=== PATIENT | female | born 2000 | race Caucasian/White ===

== ENCOUNTER 2022-02-12 09:06 | Day surgery (SDC) | payer BC, SELFPAY ==
[2022-02-12] VITALS (14 sets, daily range): BP systolic 107–131; BP diastolic 61–90; PULSE 50–98; RESP 12–18; TEMP 36.4–37.1; O2SAT 95–100; BMI 28.8
[2022-02-12] MEDS: LACTATED RINGERS 1000 ML 1,000 ML 100 ML IV (09:00)
--- NOTE | 2022-02-12 10:09 | W.ANESCHARGE ---
Anesthesia Charges Start Date/Time Anesthesia Start Date: 02/12/22 Anesthesia Start Time: 10:23 Stop Date/Time Anesthesia Stop Date: 02/12/22 Anesthesia Stop Time: 11:05 Summary Emergency: No
[2022-02-12] MEDS: fentaNYL 100 MCG/2 ML inj 50 MCG IVP (11:17)
--- NOTE | 2022-02-12 12:01 | W.PM.ENTPROC ---
Procedure Note Date of procedure: 02/12/22 Procedure: Preoperative diagnosis adenotonsillar hypertrophy, chronic tonsillitis Postoperative diagnosis same Procedure adenotonsillectomy Under general trach anesthesia patient was prepped and draped usual fashion. The McIvor mouth gag was inserted the tongue retracted forward. No submucous cleft was noted on inspection or palpation. The right and left tonsil were removed with a combination of needlepoint and Coblation. The nasopharynx was visualized indirectly with a laryngeal mirror and the adenoid pad was moderately enlarged. It was removed with suction cautery. The patient tolerated the procedure well and was taken recovery in satisfactory condition. Blood loss less than 20 mL complications none Surgeon: Leland Sheikh MD
--- NOTE | 2022-02-12 12:02 | W.ANESCHARGE ---
Anesthesia Charges Start Date/Time Anesthesia Start Date: 02/12/22 Anesthesia Start Time: 10:23 Stop Date/Time Anesthesia Stop Date: 02/12/22 Anesthesia Stop Time: 11:05 Summary Emergency: No
[2022-02-12] MEDS: IBUPROFEN 100 MG/5 ML SUSP 200 MG PO (12:23)
[2022-02-12] MEDS: OXYCODONE 1 MG/ML ORAL SOLN 5 MG PO (12:23)
== END 2022-02-12 13:15 | disposition home or self-care (01) ==
PROVIDERS: Visit Provider Otolaryngology
PROC: (CPT 42821; principal; 2022-02-12 10:15)
DX: J35.01 Chronic tonsillitis (principal); J35.3 Hypertrophy of tonsils with hypertrophy of adenoids
CPT/HCPCS: 42821; 00170; 88304; A9270; J0330; J1100; J2250; J2405; J2704; J3010; J7120